=== PATIENT | female | born 1960 | race Caucasian/White ===

== ENCOUNTER 2019-03-23 05:25 | Day surgery (SDC) | payer OTHER ==
[2019-03-21 16:35] VITALS: BMI 33.7
[2019-03-23] MEDS ORDERED: MIDAZOLAM HCL 2 MG/2 ML SINGLE DOSE VIAL ONE (10:12)
[2019-03-23] MEDS ORDERED: fentaNYL CITRATE 250 MCG/5 ML VIAL ONE (10:12)
[2019-03-23] MEDS ORDERED: PROPOFOL 20 ML ONE (10:12)
[2019-03-23] MEDS ORDERED: ROCURONIUM BROMIDE 50 MG/5 ML SYRINGE ONE (10:13)
--- NOTE | 2019-03-23 10:21 | HP ---
History & Physical Update - History History: No Change - Physical Physical: No Change - Assessment Assessment: No Change - Plan Plan: No Change (No change in HP)
--- NOTE | 2019-03-23 10:30 | OP ---
Operative Note - Note: Operative Date: 03/23/19 Pre-Operative Diagnosis: Endometrial polyp Operation: Hysteroscopic myomectomy. Suction DC Findings: Endometrial polyp Post-Operative Diagnosis: Same as Pre-op Surgeon: Cathryn Joseph Anesthesia: General Estimated Blood Loss (mls): 5 Operative Report Dictated: Yes
[2019-03-23] MEDS ORDERED: ACETAMINOPHEN 325 MG TABLET (FP) PO PRN (10:49)
[2019-03-23] MEDS ORDERED: IBUPROFEN 400 MG TABLET (FP) PO PRN (10:49)
--- NOTE | 2019-03-23 11:58 | OP ---
DATE OF OPERATION: 03/23/2019 PREOPERATIVE DIAGNOSIS: Endometrial polyp. OPERATION: Hysteroscopic myomectomy and suction dilatation and curettage. POSTOPERATIVE DIAGNOSIS: Endometrial polyp. SURGEON: Cathryn Joseph MD ANESTHESIA: General. DESCRIPTION OF PROCEDURE: Patient was taken to the operating room, placed in the dorsal lithotomy position, prepped and draped in the usual sterile fashion. A timeout was performed in accordance with hospital regulation. Speculum was placed in the vagina. Anterior lip of the cervix was grasped with a single-toothed tenaculum. Cervix was then dilated to accommodate the operative hysteroscope. After insertion of operative hysteroscope, visualization revealed endometrial polyps. Cautery and cutting of the polyp was then done, and specimen submitted to Pathology. Suction dilatation and curettage was then performed. Hemostasis was achieved. Estimated blood loss 5 mL. The patient tolerated the procedure well and was taken to recovery room in stable condition after all instruments were removed. Luz [id number]
[2019-03-23] MEDS ORDERED: ONDANSETRON 4 MG/2 ML VIAL IVPUSH PRN (13:24)
[2019-03-23] MEDS ORDERED: oxyCODONE HCL 5 MG TABLET PO PRN ×2 (13:24)
[2019-03-23] MEDS ORDERED: LACTATED RINGERS SOLUTION 1,000 ML IV SCH (13:30)
[2019-03-23 15:22] VITALS: BP 147/79; PULSE 79; TEMP 98.1
--- NOTE | 2019-03-24 18:33 | PATH ---
Surgical Pathology Report Patient Name: TANYA BOWMAN [facility]. Rec. #: [id number] /Age/Gender: 1960 (Age: 58) / F Account: [id number] Location: [facility] SURGICAL Taken: 03/23/2019 Received: 03/23/2019 Reported: 03/24/2019 Physicians: Cathryn Joseph M.D. Specimen(s) Received A: ENDOMETRIAL POLYP B: ENDOMETRIAL CURETTINGS Clinical History Postmenopausal bleeding Final Diagnosis A. ENDOMETRIAL POLYP, POLYPECTOMY: ENDOMETRIAL POLYP. B. ENDOMETRIAL CURETTINGS, DILATION AND CURETTAGE: RARE STRIP OF ENDOMETRIAL GLANDS, SCANT STROMAL TISSUE, AND SCANT BENIGN CERVICAL SQUAMOUS EPITHELIUM. SEE COMMENT. Comment: Part B, Suggest clinical correlation. Electronically Signed Tanya Valdez M.D. Gross Description A. Received in formalin labeled "endometrial polyp" are two fragments of pink-dee, focally hemorrhagic tissue measuring 0.5 and 1 cm. Entire specimen submitted in one cassette. B. Received in formalin labeled "endometrial curettings" are scanty fragments of pink-dee tissue measuring 0.2 x 0.1 cm x <0.1 cm in aggregate. Entire specimen is filtered and submitted in one cassette. MLSZ/03/23/2019 [email or web address]/03/23/2019
== END 2019-03-23 15:10 | disposition home or self-care (01) ==
LOC: JASU-SURG 05:25
PROVIDERS: ATTEND Obstetrics & Gynecology
PROC: 0UJD8ZZ Inspection of Uterus and Cervix, Via Natural or Artificial Opening Endoscopic (ICD-10-PCS; 2019-03-23)
PROC: 0UB97ZX Excision of Uterus, Via Natural or Artificial Opening, Diagnostic (ICD-10-PCS; principal; 2019-03-23 10:00)
PROC: 0UDB7ZX Extraction of Endometrium, Via Natural or Artificial Opening, Diagnostic (ICD-10-PCS; 2019-03-23 10:00)
DX: N84.0 Polyp of corpus uteri (principal)
CPT/HCPCS: 86850; 86900; 86901; 88305-TC; 94760